=== PATIENT | male | born 1980 | race Caucasian/White ===

== ENCOUNTER 2018-03-25 07:43 | Emergency (ER) | payer OTHER ==
[~2018-03-25] VITALS: Ht 160 cm; Wt 85.3 kg
[2018-03-25] MEDS ORDERED: AMOXICILLIN 50500 MG PO (07:57)
[2018-03-25] MEDS ORDERED: ULTRAM 50MG TAB50 MG PO (07:57)
[2018-03-25 08:03] VITALS: BP 137/65
== END 2018-03-25 08:04 | disposition home or self-care (01) ==
LOC: M.ERS 07:43
DX: K02.9 Dental caries, unspecified (principal)

== ENCOUNTER 2018-04-20 23:34 | Emergency (ER) | payer OTHER ==
[~2018-04-20] VITALS: Ht 160 cm; Wt 85.7 kg
[~2018-04-20 23:34] MED LIST: AMOXICILLIN 50500 MG PO; ULTRAM 50MG TAB50 MG PO
[2018-04-21] MEDS ORDERED: FLEXERIL PO (00:19)
[2018-04-21] MEDS ORDERED: NORCO 7.5-3251 EACH PO (00:19)
[2018-04-21 00:37] VITALS: BP 113/68
== END 2018-04-21 00:41 | disposition home or self-care (01) ==
LOC: M.ERS 23:34
DX: S39.012A Strain of muscle, fascia and tendon of lower back, initial encounter (principal); X58.XXXA Exposure to other specified factors, initial encounter; Y93.89 Activity, other specified; Y92.89 Other specified places as the place of occurrence of the external cause; Y99.8 Other external cause status

== ENCOUNTER 2018-06-30 09:33 | Emergency (ER) | payer OTHER ==
[~2018-06-30] VITALS: Ht 160 cm; Wt 74.0 kg
[~2018-06-30 09:33] MED LIST changes: +FLEXERIL PO; +NORCO 7.5-3251 EACH PO
[2018-06-30] MEDS ORDERED: FLEXERIL PO (09:55)
[2018-06-30] MEDS ORDERED: ULTRAM 50MG TAB50 MG PO (09:55)
[2018-06-30 10:09] VITALS: BP 131/59
== END 2018-06-30 10:09 | disposition home or self-care (01) ==
LOC: M.ERS 09:33
DX: S39.012A Strain of muscle, fascia and tendon of lower back, initial encounter (principal); X58.XXXA Exposure to other specified factors, initial encounter; Y93.89 Activity, other specified; Y92.89 Other specified places as the place of occurrence of the external cause; Y99.8 Other external cause status